=== PATIENT | female | born 1965 | race Asian ===

== ENCOUNTER 2019-08-25 21:16 | Emergency (ER) | payer OTHER ==
[2019-08-25 21:24] VITALS: BP 167/101; PULSE 76; TEMP 97.3; BMI 23.9
--- NOTE | 2019-08-25 21:25 | PDOC ---
Rapid Medical Evaluation Time Seen by Provider: 08/25/19 21:22 Medical Evaluation: Allergies Allergy/AdvReac Type Severity Reaction Status Date / Time amoxicillin trihydrate Allergy Severe Rash Verified 05/21/15 12:10 [From Augmentin] minocycline [Minocycline] Allergy Severe Rash Verified 05/21/15 12:10 potassium clavulanate Allergy Severe Rash Verified 05/21/15 12:10 [From Augmentin] Tetracyclines Allergy Severe Rash Verified 05/21/15 12:10 08/25/19 21:22 I have performed a brief in-person evaluation of this patient. The patient presents with a chief complaint of: dull chest pain since 6 pm, worsened after taking pepto, took 325mg aspirin around 8 pm, hx of HTN Pertinent physical exam findings: lungs ctab, pulses intact I have ordered the following: cards workup The patient will proceed to the ED for further evaluation. Discharge Disposition - Diagnosis Chest pain - Referrals Referrals: Morris Segura MD [Primary Care Provider] - - Patient Instructions - Post Discharge Activity
[2019-08-25 22:04] LABS: BASO % 0.8 % (0-2.0); EOS % 3.4 % (0-4.5); HEMATOCRIT 41.9 % (32.4-45.2); HEMOGLOBIN 13.4 GM/dL (10.7-15.3); LYMPH % 34.9 % (8-40); MCH 20.3 pg (25.7-33.7); MEAN CELL VOLUME 63.6 fl (80-96); MEAN PLT VOLUME 8.4 fl (7.5-11.1); MONO % 8.6 % (3.8-10.2); NEUT % 52.3 % (42.8-82.8); PLATELET COUNT 275 K/MM3 (134-434); RBC 6.59 M/mm3 (3.60-5.2); RDW 16.1 % (11.6-15.6); WHITE BLOOD COUNT 4.8 K/mm3 (4.0-10.0)
[2019-08-25 22:34] LABS: ALBUMIN 4.2 g/dl (3.4-5.0); BILIRUBIN,TOTAL 0.4 mg/dL (0.2-1); BLOOD UREA NITROGEN 20.1 mg/dL (7-18); CALCIUM 9.4 mg/dL (8.5-10.1); POTASSIUM 3.8 mmol/L (3.5-5.1)
[2019-08-25 22:49] LABS: ANISOCYTOSIS 2+; PLATELET ESTIMATE ADEQUATE
--- NOTE | 2019-08-26 14:14 | EKG ---
Test Reason : Blood Pressure : / mmHG Vent. Rate : 070 BPM Atrial Rate : 070 BPM P-R Int : 176 ms QRS Dur : 152 ms QT Int : 438 ms P-R-T Axes : 056 096 032 degrees QTc Int : 473 ms NORMAL SINUS RHYTHM RIGHT BUNDLE BRANCH BLOCK ABNORMAL ECG WHEN COMPARED WITH ECG OF 29-JUN-2014 20:20, NO SIGNIFICANT CHANGE WAS FOUND Confirmed by JOSE RUSH MD ([id number]) on 08/26/2019 2:14:06 PM Referred By: Confirmed By:JOSE RUSH MD
== END 2019-08-25 22:59 | disposition left against medical advice (07) ==
LOC: JER 21:16
DX: R07.9 Chest pain, unspecified (principal); I10 Essential (primary) hypertension
CPT/HCPCS: 36415; 71046-TC-FY; 80053; 82550; 82553; 83735; 84484; 85025; 93005; 93010; 99285-25

== ENCOUNTER → 2020-06-14 | Day surgery (SDC) | payer OTHER | END | disposition home or self-care (01) | LOC: FMAMMOTONE 08:56 | PROVIDERS: ATTEND Student in an Organized Health Care Education/Training Program | PROC: 0H9T3ZX Drainage of Right Breast, Percutaneous Approach, Diagnostic (ICD-10-PCS; principal; 2020-06-14) | DX: D24.1 Benign neoplasm of right breast (principal) | CPT/HCPCS: 19081; 19083; 19084; 76098-TC-FY; 87899; 88305-TC; A4648 ==

== ENCOUNTER → 2022-12-04 | Day surgery (SDC) | payer OTHER | END | disposition home or self-care (01) | LOC: JRADUS-SUR 08:59 | PROVIDERS: ATTEND Internal Medicine Infectious Disease | PROC: 0H9T3ZX Drainage of Right Breast, Percutaneous Approach, Diagnostic (ICD-10-PCS; principal; 2022-12-04) | DX: N60.11 Diffuse cystic mastopathy of right breast (principal) | CPT/HCPCS: 19083; 77065-TC; 87899; 88305-TC; A4648 ==